=== PATIENT | male | born 1960 | race Hispanic/Latino ===

== ENCOUNTER 2024-07-09 19:23 | Emergency (ER) | payer OTHER | END 2024-07-09 22:09 | disposition home or self-care (01) | LOC: CSHERS 19:23 | DX: S67.01XA Crushing injury of right thumb, initial encounter (principal); S62.501A Fracture of unspecified phalanx of right thumb, initial encounter for closed fracture; I10 Essential (primary) hypertension; E11.9 Type 2 diabetes mellitus without complications; E03.9 Hypothyroidism, unspecified; I25.2 Old myocardial infarction; W23.1XXA Caught, crushed, jammed, or pinched between stationary objects, initial encounter; Z86.73 Personal history of transient ischemic attack (TIA), and cerebral infarction without residual deficits; Z79.82 Long term (current) use of aspirin; Z79.899 Other long term (current) drug therapy | CPT/HCPCS: 99283 ==